=== PATIENT | male | born 1965 | race Native Hawaiian/Other Pacific Islander ===

== ENCOUNTER 2020-04-16 16:47 | Emergency (ER) | payer OTHER ==
[~2020-04-16] VITALS: Ht 167.6 cm; Wt 81.2 kg
[2020-04-16 18:43] VITALS: BP 142/75; TEMP 98.1
== END 2020-04-16 18:43 | disposition home or self-care (01) ==
LOC: ED 16:47
DX: M54.12 Radiculopathy, cervical region (principal)
CPT/HCPCS: 99283

== ENCOUNTER 2020-06-20 15:54 | Emergency (ER) | payer OTHER ==
[~2020-06-20] VITALS: Ht 167.6 cm; Wt 81.2 kg
[2020-06-20 16:11] VITALS: BP 165/89; TEMP 97.4
== END 2020-06-20 17:18 | disposition home or self-care (01) ==
LOC: ED 15:54
DX: M54.2 Cervicalgia (principal); G89.29 Other chronic pain
CPT/HCPCS: 96372; 99283; J1885; J2930

== ENCOUNTER 2020-07-09 14:55 | Emergency (ER) | payer OTHER ==
[~2020-07-09] VITALS: Ht 167.6 cm; Wt 81.2 kg
[2020-07-09 15:07] VITALS: BP 191/104; TEMP 97.3
[2020-07-09 15:30] LABS: POTASSIUM 4.2 mmol/L (3.6-5.2); SODIUM 138 mmol/L (136-145)
[2020-07-09 15:41] LABS: PLATELET COUNT 261 K/uL (142-355)
== END 2020-07-09 18:01 | disposition home or self-care (01) ==
LOC: ED 14:55
PROVIDERS: Emergency Medicine Emergency Medical Services
DX: U07.1 COVID-19 (principal)
CPT/HCPCS: 80053; 84484; 85027; 87635; 93005; 96365; 96366; 96374; 96375; 99284; J0456; J1100; U0003